=== PATIENT | male | born 1955 | race Caucasian/White ===

== ENCOUNTER → 2020-02-10 | Outpatient (CLI) | payer OTHER, MEDICARE ==
[~2020-02-10] MED LIST: ASPIR 8181 MG PO; CRESTOR40 MG PO; EFFIENT10 MG PO; PROTONIX40 M2 PO
== END ==
LOC: SJCVCIMAG 08:46 → SJCVC 10:23 → SJCVCIMAG 10:23
PROVIDERS: ATTEND Internal Medicine
DX: I08.8 Other rheumatic multiple valve diseases (principal); R00.0 Tachycardia, unspecified; I65.23 Occlusion and stenosis of bilateral carotid arteries; E78.2 Mixed hyperlipidemia; Z79.899 Other long term (current) drug therapy

== ENCOUNTER → 2020-02-12 | Outpatient (CLI) | payer OTHER, MEDICARE | LOC: LAB 10:17 | PROVIDERS: ATTEND Internal Medicine | DX: Z01.812 Encounter for preprocedural laboratory examination (principal); Z20.828 Contact with and (suspected) exposure to other viral communicable diseases ==

== ENCOUNTER → 2020-02-12 | Outpatient (CLI) | payer OTHER, MEDICARE | LOC: SJCVC 09:46 | PROVIDERS: ATTEND Internal Medicine | DX: E78.5 Hyperlipidemia, unspecified (principal); R06.02 Shortness of breath; R09.89 Other specified symptoms and signs involving the circulatory and respiratory systems; R93.1 Abnormal findings on diagnostic imaging of heart and coronary circulation ==

== ENCOUNTER 2020-02-19 06:38 | Observation (INO) | payer OTHER, MEDICARE ==
[2020-02-19] VITALS (13 sets, daily range): BP systolic 100–118; BP diastolic 57–72
[~2020-02-19] VITALS: Ht 182.9 cm; Wt 97.1 kg
[2020-02-19] MEDS ORDERED: PROTONIX40 M2 PO (07:37)
[2020-02-19] MEDS ORDERED: CRESTOR40 MG PO (07:38)
[2020-02-19 07:43] LABS: HEMATOCRIT 40.5 % (42.0-52.0); HEMOGLOBIN 13.6 gm/dL (14.0-18.0); MCH 31.7 pg (26.0-34.0); MCHC 33.5 g/dL (28.0-37.0); MCV 94.8 fL (80.0-100.0); RBC 4.27 mil/uL (4.50-6.00); RDW 13.8 % (10.5-14.5); WBC 5.2 thou/uL (4.0-11.0)
[2020-02-19 07:50] LABS: CALCIUM 9.2 mg/dL (8.5-10.1); CREATININE 1.1 mg/dL (0.7-1.3); POTASSIUM 4.3 mmol/L (3.5-5.1)
--- NOTE | 2020-02-19 08:00 | EKG ---
[facility] Theresa Cortes [facility] [place] [address] ELECTROCARDIOGRAM REPORT Name: CHASE ORTEGA Room #: REG [facility]#: [id number] Admission: 02/19/20 Attend Phys: Kam French MD, Discharge: Date of : 55 Report #: [id number] THIS REPORT FOR: cc: Khadar Galaviz MD, Christopher B. 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
--- NOTE | 2020-02-19 10:09 | CATHLAB ---
[facility] [place] [address] INVASIVE PROCEDURE REPORT Name: CHASE ORTEGA Room #: REG YELENA [facility]ers.#: [id number] Admission: 02/19/20 Attend Phys: Kam French MD, Discharge: Date of : 55 Report #: [id number] THIS REPORT FOR: cc: Khadar Galaviz MD, Christopher B. MD Lundgren, Craig H. MD [facility] ~ APPROVED REPORT Study performed: 02/19/2020 07:38:40 Patient Details Patient Status: Out-Patient Room #: The patient is a 65 year-old male Event Personnel Kam French Manager Park, Hiram Saleh RN RN, Mukesh Tineo RTR Kranthi Sanchez Roberta Monitor Procedures Performed Art Access - R femoral artery* Left Heart Cath w/or w/o Coronaries [id number] [facility] Place w/wo Plasty Single LAD 739330 13213 Initial Mod Sed Same Phys/QHP Gr5y 194462 32247 Mod Sed Same Phys/QHP Ea 403287 Hemostasis w/ Mynx Indication Chest pain Procedure Narrative The patient was brought electively to the Cardiac Catheterization Laboratory and was prepped and draped in a sterile manner. The Right Groin^ was infiltrated with 1% Lidocaine subcutaneous anesthesia. A PINNACLE 6FR Sheath #[id number] sheath was inserted into the RFA 6F^. Coronary angiography was performed using coronary diagnostic catheters. The right coronary system was accessed and visualized with a JR4 catheter. The left coronary system was accessed and visualized with a JL4 catheter. The left ventricle was accessed and visualized with a ANGLE PIG catheter. Left ventriculogram was performed in 30 degree projection. There was no hematoma. Intraoperative Conscious Sedation Sedation start time: 809 Case end Time: 919 Fentanyl 100 mcg Versed [address] [facility] [employer] [place] [address] INVASIVE PROCEDURE REPORT Name: CHASE ORTEGA Room #: [facility]#: [id number] Admission: 02/19/20 Attend Phys: Kam French, Discharge: Date of : 55 Report #: [id number] Fluoro Time: 8.00 minutes Dose: DAP 40125.00 cGycm2 1735 mGy Contrast Type and Amount: Omnipaque 225 ml Coronary Angiography The patient's coronary anatomy is right dominant. Diagnostic Cath Left Main Normal left main LAD Long, calcified 85% mid LAD stenosis. Mild distal LAD plaquing. There was severe disease in the first septal perforating branch. Diagonal 1 Mild plaquing at the origin of the first diagonal branch, moderate-sized vessel Circumflex Large, nondominant circumflex comprised of a single large bifurcating marginal branch OM1 Mild scattered plaquing in OM 1 Right Coronary Angiographically dominant. Minimal distal right coronary calcific plaquing otherwise normal right coronary R PDA Normal posterior descending RPLV Small, mild plaquing in the posterior lateral branch Left Ventriculography The left ventricle is normal in size with normal contractility. The left ventricular ejection fraction is estimated to be 60-65%. Left ventricular wall motion abnormalities are not present. There is no mitral insufficiency. Hemodynamics The aortic pressure is 114/64 mmHg with a mean of 74 mmHg. The left ventricular pressure is 139/7 mmHg with a mean of mmHg. The left ventricular end diastolic pressure is 15 mmHg. PCI Technique Lesion Anticoagulation was achieved with Heparin, Integrilin. Patient was preloaded with Effient. Percutaneous coronary intervention was performed on the mid left anterior descending artery segment. The lesion stenosis prior to intervention was 85% with DARCI 3 flow. A LAUNCHER 6FR EBU 3.5 #[id number] Guide Catheter was used to engage the LAD ostium. A Luge Wire .014 x 182CM #[id number] Interventional Guidewire was used to cross the lesion. BALLOON DILATION A Balloon catheter Euphora RX 2.5 x 15 #[id number] was inserted and inflated up to 8.00atm for 38seconds. Additional Inflation: 12.00atm [facility] [address] [place] [address] INVASIVE PROCEDURE REPORT Name: CHASE ORTEGA Room #: REG [facility]#: [id number] Admission: 02/19/20 Attend Phys: Kam French, Discharge: Date of : 55 Report #: [id number] for 30seconds. Additional Inflation: 10.00atm for 15seconds. STENT DEPLOYMENT A stent RESOLUTE PAM RX 2.5 X 22 #[id number] was inserted and inflated up to 14atm for 34seconds. POST STENT DEPLOYMENT BALLOON DILATION A Balloon catheter TREK NC RX 2.5 X 15 #[id number] was inserted and inflated up to 18.00atm for 26seconds. Additional Inflation: 18.00atm for 27seconds. Additional Inflation: 22.00atm for 25seconds. ADDL. 22ATM FOR 23 SEC/MIN Final angiography reveals 0 % stenosis with DARCI 3 flow. Conclusion 1. Normal global and regional left ventricular systolic function. EF 65% 2. Normal left main 3. Severe mid LAD disease successfully stented with a 2.5 x 22 mm Resolute medicated stent. Post-dilated to 2.65mm 4. Minimal plaquing in a large, nondominant circumflex 5. Minimal plaquing in a dominant right coronary <ELECTRONICALLY SIGNED> By: Kam French MD, [facility] 02/19/20 100 100 08 Kam French MD, FACC /INF
--- NOTE | 2020-02-19 10:56 | EKG ---
[facility] Theresa Cortes [place] [address] ELECTROCARDIOGRAM REPORT Name: CHASE ORTEGA Room #: REG [facility]#: [id number] Admission: 02/19/20 Attend Phys: Kam French MD, Discharge: Date of : 55 Report #: [id number] THIS REPORT FOR: cc: Khadar Galaviz MD, Christopher B. 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
[2020-02-19] MEDS ORDERED: ASPIR 8181 MG PO (11:36)
[2020-02-19] MEDS ORDERED: EFFIENT10 MG PO (11:36)
--- NOTE | 2020-02-19 18:19 | NUR ---
PT ARRIVED TO UNIT AT APPROX 1050. PT ALERT AND ORIENTED.VSS DENIES PAIN. O2 SATS WNL ON RA. PT ON BEDREST POST CATH. R GROIN SITE CDI NO HEMATOMA. ADMISSION COMPLETE. BEDREST COMPLETE PT UP TOLERATING WELL. R GROIN SITE REMAINS SAME. PLAN FOR HOME IN AM. PT DENIES NEEDS OR CONCERNS. CONTINUING POC. WILL PASS ON REPORT TO PALMER ASTUDILLO.
[2020-02-20 03:53] VITALS: BP 110/63
[2020-02-20 05:03] VITALS: BP 132/77
[2020-02-20 05:04] VITALS: BP 120/80
[2020-02-20 05:39] LABS: HEMATOCRIT 38.8 % (42.0-52.0); MCH 31.7 pg (26.0-34.0); MCHC 33.5 g/dL (28.0-37.0); MCV 94.8 fL (80.0-100.0); RBC 4.09 mil/uL (4.50-6.00); RDW 14.1 % (10.5-14.5)
[2020-02-20 06:28] LABS: ALBUMIN 3.3 g/dL (3.4-5.0); ANION GAP 11 mmol/L (7-16); CALCIUM 8.7 mg/dL (8.5-10.1); CHLORIDE 105 mmol/L (98-107); CHOLESTEROL 153 mg/dL (<200); CO2 25 mmol/L (21-32); CREATININE 1.2 mg/dL (0.7-1.3); GLUCOSE 105 mg/dL (74-106); HDL CHOLESTEROL 80 mg/dL (>40); LDL CHOLESTEROL 65 mg/dL (<100); POTASSIUM 3.9 mmol/L (3.5-5.1); SGOT 37 U/L (15-37); SGPT 46 U/L (30-65); SODIUM 141 mmol/L (136-145); TC:HDL 1.9 Ratio (Not establshd); TOTAL BILIRUBIN 1.3 mg/dL (0.2-1.0); TRIGLYCERIDE 40 mg/dL (<150); VLDL 8 mg/dL (<40)
[2020-02-20 06:51] LABS: BUN 14 mg/dL (7-18)
--- NOTE | 2020-02-20 07:26 | NUR ---
ASSUMED PATIENT CARE AT 1845. VITAL SIGNS STABLE WITH PATIENT HAVING NO COMPLAINTS OF PAIN OR NAUSEA. FULLY ORIENTED, PATIENT IS ABLE TO PARTICIPATE IN CARE AND CALL APPROPRIATELY FOR REQUESTS. NO ABNORMALITIES ON TELE. BREATHING STABLE ON ROOM AIR EVIDENCED BY ASSESSMENTS AND SPOT OXYGENATION CHECKS. PATIENT HAS BEEN KEPT NPO FOR PROCEDURE THIS MORNING. PRE OP CARE GIVEN WITH FULL REPORT, PATIENT TRANSFERRED TO PRE OP AROUND 0600. UP AD ZITA THROUGHOUT SHIFT, PATIENT IS BALANCED AND COORDINATED WHEN AMBULATING. CONTINUE PLAN OF CARE.
--- NOTE | 2020-02-20 07:35 | NUR ---
ASSUMED PATIENT CARE AT 1845. VITAL SIGNS STABLE WITH PATIENT HAVING NO COMPLAINTS OF PAIN OR NAUSEA. FULLY ORIENTED, PATIENT IS ABLE TO CALL APPROPRIATELY FOR NEEDS AND PARTICIPATE IN CARE. CATH SITE CLEAN, DRY, AND INTACT WITH PATIENT NORMAL SINUS RHYTHM TO SINUS DUKE THROUGHOUT SHIFT. UP AD ZITA THROUGHOUT SHIFT, PATIENT IS BALANCED AND COORDINATED WHEN AMBULATING. PATIENT IS ANXIOUS FOR PROBABLE DISCHARGE LATER THIS MORNING. CONTINUE PLAN OF CARE.
[2020-02-20 09:09] VITALS: BP 120/80
--- NOTE | 2020-02-20 11:10 | NUR ---
PT. S RIGHT GROIN SITE IS C,D,I NO HEMNATOMA OBSERVED NOR PALAPTED. NSR ON THE MONITOR, DISCUSSED MONITORING HIS BLOOD RPESSURE WHEN HE GOES HOME FOR A LITTLE WHILE HE CAN DROP IT ONCE AND AWHILE, UNDERSTOOD SIGN'S AND SYMPTOMS. NO SOB, NO CP. IV REMOVED, NO INILFTRATION OBSERVED. . ALL PAPERWORK FOR DISCHARGED REVIEWED WITH IN ROOM.
--- NOTE | 2020-02-20 11:42 | EKG ---
[facility] [place] [address] ELECTROCARDIOGRAM REPORT Name: CHASE ORTEGA Room #: 212-P [facility] M.R.#: [id number] Admission: 02/19/20 Attend Phys: Kam French MD, Discharge: 02/20/20 Date of : 55 Report #: [id number] THIS REPORT FOR: cc: Khadar Galaviz MD, Christopher B. MD Santiago, Patrick MD 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[employer] : 1955 Requested By: Kam French Order Number: [id number] MD: Andreas Meza Measurements Intervals [place] Rate: 59 P: 50 MS: 138 QRS: 14 QRSD: 104 T: 17 QT: 437 QTc: 433 Interpretive Statements Sinus rhythm Probable left atrial enlargement Borderline T abnormalities, anterior leads Compared to ECG 02/19/2020 09:57:56 T-wave abnormality now present Electronically Signed On 02-20-2020 11:42:40 BUNDLE PACKER by Andreas Meza [email or web address] <ELECTRONICALLY SIGNED> By: Andreas Meza MD, FACC 02/20/20 1142 6 6 Andreas Meza MD, FAC /EPI
--- NOTE | 2020-02-22 12:57 | D ---
[facility] [place] [address] DISCHARGE SUMMARY Name: CHASE ORTEGA Room #: 212-P [facility] M.R.#: [id number] Admission: 02/19/20 Attend Phys: Kam French MD, Discharge: 02/20/20 Date of : 55 Report #: [id number] THIS REPORT FOR: cc: Khadar Galaviz MD,Khadar French,Kam Jacobsen MD [facility] ~ CC: Justyn French DISCHARGE DIAGNOSES: 1. Severe coronary artery disease with mid LAD stenting (2.5 x 22 mm Resolute medicated stent). 2. Dyslipidemia. HISTORY OF PRESENT ILLNESS: For the complete details of the history of present illness, see dictated history and physical. Briefly, the patient is a 65-year-old gentleman with a very high coronary artery calcium score of greater than 1000. Recent stress study demonstrated marked electrocardiographic changes with LAD ischemia. He is admitted for coronary angiography and further evaluation. HOSPITAL COURSE: The patient underwent coronary angiography. Full details of this can be found under separate heading and dictation. In summary, left ventricular systolic function was found to be normal. There was high-grade mid LAD disease, densely calcified, which was treated with angioplasty and stenting with a 2.5 x 22 mm Resolute medicated stent. This was postdilated to 2.7 mm with a noncompliant balloon. He was treated with aspirin, Effient, heparin, and Integrilin in the periprocedural setting. He was ambulating with excellent groin hemostasis at the time of discharge. His right coronary and circumflex exhibited minimal plaquing. He does have a history of marked dyslipidemia and he has been intolerant to lovastatin, Livalo and simvastatin. He seems to be doing okay with rosuvastatin. His discharge medicines were reconciled. There are no issues or problems related to dual antiplatelet therapy. DISCHARGE MEDICATIONS: Include Effient 10 mg daily, aspirin 81 mg daily, rosuvastatin 40 mg daily. DISCHARGE ACTIVITY: As instructed post-catheterization. DISCHARGE FOLLOWUP: With myself in 1 month. Carotid duplex evaluation for carotid stenosis scheduled. [address] [address] DISCHARGE SUMMARY Name: CHASE ORTEGA Room #: 212-P [facility] [place]#: [id number] Admission: 02/19/20 Attend Phys: Kam French MD, Discharge: 02/20/20 Date of : 55 Report #: [id number] DISCHARGE DIET: Low fat, low cholesterol. DISCHARGE CONDITION: Stable and improved. <ELECTRONICALLY SIGNED> By: Kam French MD, [facility] 02/22/20 1257 1639 22 Kam French MD, FACC /nt
== END 2020-02-20 11:40 | disposition home or self-care (01) ==
LOC: CATH 06:38 → 2N 09:00 → CATH 10:58 → 2N 02-20 11:40
PROVIDERS: ADMIT Internal Medicine; ATTEND Internal Medicine
DX: I25.10 Atherosclerotic heart disease of native coronary artery without angina pectoris (principal); E78.5 Hyperlipidemia, unspecified
CPT/HCPCS: 10797

== ENCOUNTER → 2020-03-26 | Outpatient (CLI) | payer OTHER, MEDICARE | LOC: SJCVCIMAG 07:53 | PROVIDERS: ATTEND Internal Medicine | DX: I65.23 Occlusion and stenosis of bilateral carotid arteries (principal); I25.10 Atherosclerotic heart disease of native coronary artery without angina pectoris; E78.5 Hyperlipidemia, unspecified; R93.1 Abnormal findings on diagnostic imaging of heart and coronary circulation; Z79.82 Long term (current) use of aspirin; Z79.899 Other long term (current) drug therapy ==

== ENCOUNTER → 2021-01-25 | Outpatient (CLI) | payer OTHER, MEDICARE | LOC: SJCVC 10:47 | PROVIDERS: ATTEND Internal Medicine | DX: R94.31 Abnormal electrocardiogram [ECG] [EKG] (principal); R00.1 Bradycardia, unspecified; I25.10 Atherosclerotic heart disease of native coronary artery without angina pectoris; E78.5 Hyperlipidemia, unspecified; R93.1 Abnormal findings on diagnostic imaging of heart and coronary circulation; I65.23 Occlusion and stenosis of bilateral carotid arteries; Z72.89 Other problems related to lifestyle; Z88.8 Allergy status to other drugs, medicaments and biological substances; Z91.013 Allergy to seafood; Z79.82 Long term (current) use of aspirin; Z79.899 Other long term (current) drug therapy ==